=== PATIENT | female | born 1985 | race Caucasian/White ===

== ENCOUNTER 2020-05-31 04:16 | Emergency (ER) | payer BC ==
[2020-05-31] MEDS ORDERED: ONDANSETRON INJ 4 MG/2 ML VIAL IV ONE (04:28)
[2020-05-31] MEDS ORDERED: SODIUM CHLORIDE 0.9% (FLUSH) 10 ML SYG IV PRN (04:28)
[2020-05-31 05:23] VITALS: O2SAT 97
--- NOTE | 2020-05-31 05:40 | ED.PDOC ---
History of Present Illness - General Chief Complaint: Abdominal Pain Stated Complaint: abd pain Time Seen by Provider: 05/31/20 05:20 Information Source: patient Exam Limitations: no limitations - History of Present Illness Abdominal Pain Onset Location: suprapubic Pain Radiation: LLQ Quality: cramping Timing/Duration: intermittent Improving Factors: nothing Worsening Factors: nothing Associated Symptoms: nausea/vomiting Review of Systems - Review of Systems Constitutional: Denies: chills, fever EENTM: States: no symptoms reported Respiratory: States: no symptoms reported Cardiology: States: no symptoms reported Gastrointestinal/Abdominal: States: abdominal pain - LLQ AND SUPRAPUBIC. , nausea, vomiting - X ONCE. Genitourinary: Denies: discharge, dysuria, frequency, hematuria Musculoskeletal: States: no symptoms reported Skin: States: no symptoms reported Neurological: States: no symptoms reported Endocrine: States: no symptoms reported Hematologic/Lymphatic: States: no symptoms reported All other Systems: Reviewed and Negative Past Medical History (General) - Patient Medical History Hx Congestive Heart Failure: No Hx Hypertension: No Hx Diabetes: No Surgical History: other - Social History Hx Tobacco Use: No Hx Alcohol Use: Yes - occ Hx Depression: Yes Family Medical History - Family History Mother Hx Family Hypertension: Yes Hx Family Diabetes: Yes Hx Family;Other: glaucoma, depression Father Hx Family Asthma: Yes Hx Family Hypertension: Yes Hx Family;Other: depression Physical Exam - Physical Exam General Appearance: Alert, No apparent distress Eyes, Ears, Nose, Throat Exam: PERRL/EOMI, normal ENT inspection Neck: full range of motion, normal inspection Respiratory: lungs clear, normal breath sounds Cardiovascular/Chest: regular rate, rhythm, no murmur Peripheral Pulses: No deficit Gastrointestinal/Abdominal: normal bowel sounds, soft, no organomegaly, no pulsatile mass, tenderness - LLQ ONLY MILDLY TENDER TO DEEP PALPATION. NO GUARDING OR REBOUND. OTHER 4 QUADS NTTP. Pelvic Exam: other - DEFERRED Rectal Exam: deferred Back Exam: no CVA tenderness, no vertebral tenderness Extremity: normal range of motion, normal inspection Neurologic: alert, normal mood/affect Skin Exam: normal color, warm/dry Lymphatic: no adenopathy Progress - Results/Orders Results/Orders: CMP, LIPASE/AMYLAS, HCG, UA ALL NEG CMP - WBC AND NEUTS MILDLY ELEVATED C/W IFXN. VIRAL GASTROENTERITIS VS DIVERTICULITIS. CONSIDERING HER PAIN LOCALIZES TO LLQ, IS INTERMITTENT, STARTED ONLY 7 HRS AGO, AND ARE ABSENT PRESENTLY (PT DECLINES PAIN MED IN ER), IT IS NOT A SURGICAL ABDOMEN THUS I DIDN'T ORDER A CT AND I AM TREATING CLINICALLY DIVERTICULITIS. IF PAIN DOESN'T START TO AT LEAST IMPROVE BY 2 D, THEN CT IS INDICATED TO LOOK FOR OTHER CAUSES SUCH OVARIAN CYST. Departure - Departure Clinical Impression: Diverticulitis, Colicky LLQ abdominal pain, Neutrophilic leukocytosis Disposition: Discharge to Home or Self Care Condition: Good Departure Forms: ED Discharge - Pt. Copy, Patient Portal Self Enrollment Instructions: DI for Abdominal Pain-Adult Diet: bland diet Activity: increase activity as tolerated Referrals: [employer] [employer],CELINA Lu [Primary Care Provider] - 1-5 Days Prescriptions: Acetaminophen W/ Codeine [Tylenol W/ CODEINE #3] 2 ea PO Q6H PRN #20 PRN Reason: Pain Ciprofloxacin [Cipro] 500 mg PO BID 7 Days #14 tab metroNIDAZOLE [Flagyl] 500 mg PO Q8H 7 Days #21 tab Home Medications: Ambulatory Orders Acetaminophen W/ Codeine [Tylenol W/ CODEINE #3] 2 ea PO Q6H PRN #20 05/31/20 Ciprofloxacin [Cipro] 500 mg PO BID 7 Days #14 tab 05/31/20 metroNIDAZOLE [Flagyl] 500 mg PO Q8H 7 Days #21 tab 05/31/20 Additional Instructions: Please take the antibiotic prescription for 7 days. If the pain is not starting to improve by 2 days from now, then please see your regular Dr. or return to the ER, at which time a CT of the abdomen and pelvis will be considered.
[2020-05-31] MEDS ORDERED: CIPROFLOXACIN 500 MG TAB PO ONE (05:46)
[2020-05-31] MEDS ORDERED: metroNIDAZOLE 500 MG TAB PO ONE (05:47)
[2020-05-31 05:58] VITALS: BP 129/83; TEMP 97.5
== END 2020-05-31 05:56 | disposition home or self-care (01) ==
LOC: ER 04:16
DX: K57.92 Diverticulitis of intestine, part unspecified, without perforation or abscess without bleeding (principal); R10.32 Left lower quadrant pain; R11.2 Nausea with vomiting, unspecified; D72.829 Elevated white blood cell count, unspecified
CPT/HCPCS: 80048; 80076; 81001; 82150; 83690; 84703; 85025; J2405